=== PATIENT | female | born 1975 | race Hispanic/Latino ===

== ENCOUNTER → 2019-01-30 | Outpatient (CLI) | payer BC ==
[~2019-01-30] MED LIST: COLACE100 MG PO; HYZAAR 50-12.51 EACH PO; LOSARTAN PO; MOTRIN800 MG PO; NORCO 5-325 TA1 EACH PO
--- NOTE | 2019-01-31 07:48 | Diagnostic Imaging Report ---
Exam: Pelvic ultrasound with doppler History: Left ovarian complex cyst. Comparison: None. Findings: Endovaginal sonographic evaluation of the pelvis. Status post hysterectomy. The right ovary is not visualized, likely secondary to overlying bowel gas. The left ovary measures 5.9 x 3.3 x 5.2 cm and demonstrates Doppler flow. There is a 5.3 x 3.3 x 3.6 cm cystic lesion within the left ovary with low level homogeneous internal echoes and absence of Doppler flow. There is posterior acoustic enhancement. No free fluid. Impression: Cystic lesion within the left ovary measuring up to 5.3 cm with homogeneous internal echogenicity. This may represent an endometrioma. Differential also includes a hemorrhagic cyst in a pre-menopausal patient. Comparison with outside hospital imaging would be helpful if available. Follow-up pelvic ultrasound is suggested in 3 months. Status post hysterectomy. Right ovary is not visualized, likely due to overlying bowel gas. Signed by: Dr. Dawn Jaime MD on 01/31/2019 7:45 AM
== END ==
LOC: US 16:00
PROVIDERS: ATTEND Specialist
DX: N83.202 Unspecified ovarian cyst, left side (principal)
CPT/HCPCS: 76830